=== PATIENT | male | born 1990 | race Asian ===

== ENCOUNTER 2016-07-13 13:25 | Emergency (ER) | payer SELFPAY ==
[~2016-07-13] VITALS: Ht 175.3 cm; Wt 90.7 kg
[2016-07-13 13:40] VITALS: BP 157/76
--- NOTE | 2016-07-13 14:55 | NUR ---
Patient ambulated to bed 03.
--- NOTE | 2016-07-13 14:55 | NUR ---
25M BIB SELF C/O LEFT SIDED ABDOMINAL TIGHTNESS, NON-RADIATING, 0/10 X 1 1/2 WEEKS; PT DENIES PAIN BUT STATES " IT DOESN'T HURT, IT'S JUST UNCOMFORTABLE" AT THIS TIME; ABDOMEN SOFT, NON-TENDER, ACTIVE BOWEL SOUNDS X 4 QUADRANTS; PT DENIES N/V/D AT THIS TIME; A&OX4, PERRLA, BL LUNG SOUNDS CLEAR, RR EVEN/UNLABORED, SKIN IS WARM/DRY/INTACT; STEADY GAIT; PT RESTING IN BED W/ HOB ELEVATED AND IN LOWEST POSITION; POSITIONED FOR COMFORT; ER MD MADE AWARE OF STATUS. WILL CONTINUE TO MONITOR.
--- NOTE | 2016-07-13 14:58 | NUR ---
Dr. Justin evaluating patient at bedside.
[2016-07-13 15:15] VITALS: BP 132/88
--- NOTE | 2016-07-13 15:15 | NUR ---
Patient discharged with v/s stable. Written and verbal after care instructions given and explained. Patient alert, oriented and verbalized understanding of instructions. Ambulatory with steady gait. All questions addressed prior to discharge. ID band removed. Patient advised to follow up with PMD. Rx of MOTRIN 600MG TAB given. Patient educated on indication of medication including possible reaction and side effects. Opportunity to ask questions provided and answered.
== END 2016-07-13 15:15 | disposition home or self-care (01) ==
LOC: MED 13:25
DX: D17.39 Benign lipomatous neoplasm of skin and subcutaneous tissue of other sites (principal); Z71.51 Drug abuse counseling and surveillance of drug abuser; Z71.41 Alcohol abuse counseling and surveillance of alcoholic
CPT/HCPCS: 99283